=== PATIENT | male | born 1955 | race Caucasian/White ===

== ENCOUNTER 2016-08-14 07:14 | Emergency (ER) | payer OTHER ==
[~2016-08-14] VITALS: Ht 177.8 cm; Wt 97.5 kg
[~2016-08-14 07:14] MED LIST: ENDOCET 325 MG-1 TA1 PO; GUAIFENESIN-COD10 ML PO; MEDROL4 M2 PO; MEDROL4 MG PO; PERCOCET 325 MG1 TA2 PO; PREDNISONE10 MG PO; TESSALON PERLE100 M1 PO; ZITHROMAX250 M2 PO
--- NOTE | 2016-08-14 07:28 | ED MVC/FALL/TRAUMA COMPLAINT ---
History of Present Illness General Chief Complaint: Fall Stated Complaint: LAC TO HEAD,CORDOVA, NAUSEOUS S/P FALL Source: patient, family Exam Limitations: confusion Vital Signs & Intake/Output Vital Signs & Intake/Output Vital Signs Date Time Temp Pulse Resp B/P Pulse O2 O2 Flow FiO2 Ox Delivery Rate 08/14 0756 Room Air Room Air 08/14 0727 98.4 76 20 175/102 99 Room Air Allergies Coded Allergies: NO KNOWN ALLERGIES (04/16/14) Reconcile Medications Naproxen 250 MG TABLET 1 TAB PO BIDP PRN PAIN (Reported) Ondansetron (Zofran Odt) 4 MG TAB.RAPDIS 1 TAB PO Q6 PRN NAUSEA Triage Note: SLIPPED ON ICE AND HIT HEAD WHILE AT WORK, SMALL LACERATION TO BACK OF HEAD, ? LOC, DOESN'T RECALL INCIDENT. Triage Nurses Notes Reviewed? yes Onset: Abrupt Duration: hour(s): (5) Timing: single episode today Severity: moderate Injuries/Fall Location: head Method of Injury: fall Loss of Consciousness: brief (seconds) Associated Symptoms: CONFUSION HPI: 61 year old male who slipeed at work and fell onto the ground and sustained a laceration to the back of the head. His girlfriend states that his coworkers called her and she brought him home. He was confused and didn't remember what happened and she brought him here for evaluation No blurred vision. Patient oriented x 1 only. History of previous concussions. No blood thinner history. Patient reports headache, nausea and confusion. Denies blurred vision. Denies difficulty walking. Past History Travel History Traveled to [place] past 21 day No Medical History Any Pertinent Medical History? see below for history Neurological: NONE EENT: NONE Cardiovascular: NONE Respiratory: asthma Gastrointestinal: NONE Hepatic: NONE Renal: NONE Musculoskeletal: back pain Psychiatric: NONE Endocrine: NONE Surgical History Surgical History: N Psychosocial History What is your primary language Uzbek Tobacco Use: Never used ETOH Use: denies use Family History Hx Contributory? No Review of Systems Review of Systems Constitutional: Denies: chills, fever. Eyes: Denies: blurred vision. Ears, Nose, Throat, Mouth: Reports: no symptoms. Respiratory: Denies: cough, short of breath. Cardiovascular: Denies: chest pain, palpitations. Gastrointestinal/Abdominal: Reports: no symptoms. Genitourinary: Reports: no symptoms. Musculoskeletal: Denies: back pain, joint pain, joint swelling, muscle pain, muscle stiffness, neck pain. Skin: Reports: no symptoms. Neurological/Psychological: Reports: confusion. Denies: headache. All Other Systems: Reviewed and Negative Physical Exam Physical Exam General Appearance: well developed/nourished, alert, awake, mild distress, obese Head: OCCIPITAL ABRASION, DRIED BLOOD Eyes: Bilateral: PERRL, EOMI. Ears, Nose, Throat, Mouth: hearing grossly normal, moist mucous membrane Neck: normal inspection, supple, full range of motion Respiratory: normal breath sounds, chest non-tender, no respiratory distress Cardiovascular: regular rate/rhythm Peripheral Pulses: 2+ radial (R), 2+ radial (L) Gastrointestinal: normal bowel sounds, soft, non-tender Extremities: normal range of motion Neurologic/Psych: no motor/sensory deficits, awake, alert, ORIENTED X 2 Skin: intact, normal color, warm/dry Diagram Head: 1) OCCIPITAL ABRASION Core Measures ACS in differential dx? No Severe Sepsis Present: No Septic Shock Present: No Progress Differential Diagnosis: ICH, CONCUSSION, ABRASION Plan of Care: Orders Procedure Date/time Status CT HEAD WO IV CONTRAST 08/14 739 Active Current Medications Sig/Dominick Start time Last Medication Dose Stop Time Status Admin Tetanus/Diphtheria 0.5 ML ONCE ONE 08/14 744 AC Toxoids Adsorbed 08/14 745 (Decavac) wound irrigated thoroughly. bacitracin applied. (BLADIMIR MENDEZ,FILI) Diagnostic Imaging: Viewed by Me: CT Scan. Discussed w/RAD: CT Scan. Radiology Impression: PATIENT: AILYN VILLAFUERTE PRESENT AGE: 61 PATIENT ACCOUNT NO: [id number] : 59 LOCATION: [facility] [place] ORDERING PHYSICIAN: FILI GARRISON MD SERVICE DATE: 08/14/16 EXAM TYPE: CAT - CT HEAD WO IV CONTRAST EXAMINATION: CT HEAD WITHOUT CONTRAST CLINICAL INFORMATION: Difficulty walking. Slip and fall. Occipital abrasion. COMPARISON: None TECHNIQUE: Contiguous axial imaging was performed from the skull base to vertex without intravenous administration of contrast. DLP: 601 mGy-cm FINDINGS: There is no evidence of acute intracranial hemorrhage or territorial infarction. No abnormal mass effect or midline shift is seen. Gomez to white matter differentiation is well preserved. No extra-axial fluid collections are identified. The ventricles are normal in size. There is no abnormal attenuation within the brain parenchyma. The osseous structures are normal. There is mild mucosal thickening within the ethmoid and sphenoid air cells. The mastoid air cells and middle ear cavities are clear. Mild degenerative changes of the right temporomandibular joint are noted. There is soft tissue thickening in the scalp at the posterior vertex. IMPRESSION: No acute intracranial pathology. DICTATED BY: GLENN PERSAUD MD DATE/TIME DICTATED:08/14/16830 GLOBAL PRESIDENT: ELICIA DATE/TIME TRANSCRIBED:08/14/16830 CONFIDENTIAL, DO NOT COPY WITHOUT APPROPRIATE AUTHORIZATION. <Electronically signed in Other Vendor System> SIGNED BY: GLENN PERSAUD MD 08/14/16 0837 Departure Departure Time of Disposition: 854 Disposition: HOME OR SELF CARE Condition: Stable Clinical Impression Primary Impression: Concussion Referrals: MARIA MENDEZ,MONI Joseph Additional Instructions: Take Zofran as needed for nausea. Take Motrin or Tylenol as needed for headache. Rest over the next 2-3 days at home. No work. Follow up with a neurologist if her symptoms persist beyond a week. Return to the ER for any changing or worsening symptoms. Departure Forms: Customer Survey General Discharge Information Prescriptions: Current Visit Scripts Ondansetron (Zofran Odt) 1 TAB PO Q6 PRN NAUSEA #20 TAB
[2016-08-14] MEDS ORDERED: NAPROXEN250 M1 PO (07:56)
--- NOTE | 2016-08-14 08:37 | CT SCAN REPORT ---
EXAMINATION: CT HEAD WITHOUT CONTRAST CLINICAL INFORMATION: Difficulty walking. Slip and fall. Occipital abrasion. COMPARISON: None TECHNIQUE: Contiguous axial imaging was performed from the skull base to vertex without intravenous administration of contrast. DLP: 601 mGy-cm FINDINGS: There is no evidence of acute intracranial hemorrhage or territorial infarction. No abnormal mass effect or midline shift is seen. Gomez to white matter differentiation is well preserved. No extra-axial fluid collections are identified. The ventricles are normal in size. There is no abnormal attenuation within the brain parenchyma. The osseous structures are normal. There is mild mucosal thickening within the ethmoid and sphenoid air cells. The mastoid air cells and middle ear cavities are clear. Mild degenerative changes of the right temporomandibular joint are noted. There is soft tissue thickening in the scalp at the posterior vertex. IMPRESSION: No acute intracranial pathology.
[2016-08-14] MEDS ORDERED: ZOFRAN ODT4 M1 PO (08:57)
[2016-08-14 09:11] VITALS: BP 149/89
== END 2016-08-14 09:11 ==
LOC: ERH 07:14
DX: S06.0X9A Concussion with loss of consciousness of unspecified duration, initial encounter (principal); W00.0XXA Fall on same level due to ice and snow, initial encounter
CPT/HCPCS: 90471; 90714

== ENCOUNTER 2016-11-05 07:14 | Emergency (ER) | payer OTHER ==
[~2016-11-05] VITALS: Ht 177.8 cm; Wt 93.4 kg
[~2016-11-05 07:14] MED LIST changes: +NAPROXEN250 M1 PO; +ZOFRAN ODT4 M1 PO
[2016-11-05 07:19] VITALS: BP 135/94
--- NOTE | 2016-11-05 07:28 | ED GENERAL ADULT ---
History of Present Illness General Chief Complaint: Low Back Pain/Injury Stated Complaint: LOW R BACK PAIN Source: patient Exam Limitations: no limitations Vital Signs & Intake/Output Vital Signs & Intake/Output Vital Signs Date Time Temp Pulse Resp B/P B/P Pulse O2 O2 Flow FiO2 Mean Ox Delivery Rate 11/05 0719 97.7 71 18 135/94 97 Room Air Allergies Coded Allergies: NO KNOWN ALLERGIES (04/16/14) Reconcile Medications Naproxen 250 MG TABLET 1 TAB PO BIDP PRN PAIN (Reported) Ondansetron (Zofran Odt) 4 MG TAB.RAPDIS 1 TAB PO Q6 PRN NAUSEA Triage Note: PT TO ED FOR EXACERBATION OF CHRONIC BACK PAIN, STATES HE INJURED IT APPROX 4 YEARS AGO AND "I JUST TWISTED WRONG THE OTHER DAY". NO LOSS OF B/B. Triage Nurses Notes Reviewed? yes Onset: Abrupt Duration: day(s): Timing: recent history HPI: 11/05/16 7:42 AM 61-year-old man presents to the emergency department complaining of low back pain. According to the patient is in his usual state of health until yesterday when after lifting a object he developed right-sided low back pain. The onset of the symptoms was abrupt, the duration was approximately 12 hours ago, the severity was significant as his symptoms required him to come to the emergency department for care. He says that he has a history of intermittent low back pain. He denies lower extremity weakness. He does say that he has some numbness occasionally to the dorsal aspect of his right foot. Past History Travel History Traveled to [place] past 21 day No Medical History Any Pertinent Medical History? see below for history Neurological: NONE EENT: NONE Cardiovascular: NONE Respiratory: asthma Gastrointestinal: NONE Hepatic: NONE Renal: NONE Musculoskeletal: CHRONIC back pain Psychiatric: NONE Endocrine: NONE Blood Disorders: NONE Cancer(s): NONE Tetanus Vaccine: 08/14/16 Surgical History Surgical History: N Psychosocial History What is your primary language Moroccan Tobacco Use: Current Daily Use Daily Tobacco Use Amount/Type: =< 4 Cigarettes daily ETOH Use: occasional use Illicit Drug Use: denies illicit drug use Family History Hx Contributory? No Review of Systems Review of Systems Constitutional: Denies: fever. EENTM: Reports: no symptoms. Respiratory: Reports: no symptoms. Cardiovascular: Reports: no symptoms. GI: Reports: no symptoms. Genitourinary: Reports: no symptoms. Musculoskeletal: Reports: back pain. Skin: Denies: rash. Neurological/Psychological: Denies: weakness. Hematologic/Endocrine: Denies: bruising, bleeding. Physical Exam Physical Exam General Appearance: well developed/nourished, alert, awake, anxious, mild distress Head: atraumatic, normal appearance Eyes: Bilateral: normal appearance, PERRL, EOMI. Ears, Nose, Throat: normal pharynx, normal ENT inspection Neck: normal inspection, supple, full range of motion Respiratory: normal breath sounds, chest non-tender, no respiratory distress Cardiovascular: regular rate/rhythm Back: decreased range of motion, muscle spasm (RIGHT SIDED) Extremities: normal inspection, normal range of motion, no edema Neurologic/Psych: no motor/sensory deficits, awake, alert, oriented x 3 Skin: intact, normal color, warm/dry Comments: He has right-sided lower lumbar pain; no actual tenderness but he does have some tightness to the right-sided paravertebral muscles, straight leg raising test is negative. He has no lower extremity weakness. Core Measures ACS in differential dx? No CVA/TIA Diagnosis: No Severe Sepsis Present: No Septic Shock Present: No Progress Differential Diagnoses I considered the following diagnoses in my evaluation of the patient: [Strain, disc herniation, transverse myelitis, epidural abscess, Lyme disease, sciatica] Plan of Care: The patient was treated with IM and by mouth Flexeril. He was told to not lift any heavy objects for the next week. Initial ED EKG: none Departure Departure Disposition: STILL A PATIENT Condition: Stable Clinical Impression Primary Impression: Acute exacerbation of chronic low back pain Referrals: PATIENT HAS NO PRIMARY CARE DR (PCP/Family) Departure Forms: Customer Survey General Discharge Information Critical Care Note Critical Care Note Critical Care Time: non-applicable
[2016-11-05] MEDS ORDERED: MOBIC15 M1 PO (07:56)
[2016-11-05] MEDS ORDERED: PERCOCET 5-3251 EACH PO (07:56)
[2016-11-05] MEDS ORDERED: CYCLOBENZAPRINE10 M1 PO (07:56)
== END 2016-11-05 08:00 ==
LOC: ERH 07:14
DX: M54.5 Low back pain (principal)
CPT/HCPCS: 96372; J1885

== ENCOUNTER 2016-12-19 10:18 | Emergency (ER) | payer OTHER ==
[~2016-12-19 10:18] MED LIST changes: +CYCLOBENZAPRINE10 M1 PO; +MOBIC15 M1 PO; +PERCOCET 5-3251 EACH PO
[2016-12-19 10:30] VITALS: BP 115/78
[2016-12-19] MEDS ORDERED: LIDODERM1 EACH TOP (11:55)
[2016-12-19] MEDS ORDERED: PERCOCET 5-3251 EACH PO (11:55)
--- NOTE | 2016-12-19 11:56 | ED GENERAL ADULT ---
History of Present Illness General Chief Complaint: Lower Extremity Injury Stated Complaint: LFT KNEE INJURY AT WORK Source: patient Exam Limitations: no limitations Vital Signs & Intake/Output Vital Signs & Intake/Output Vital Signs Date Time Temp Pulse Resp B/P B/P Pulse O2 O2 Flow FiO2 Mean Ox Delivery Rate 12/19 1123 99 Room Air 12/19 1030 97.3 78 16 115/78 94 Room Air Allergies Coded Allergies: NO KNOWN ALLERGIES (04/16/14) Reconcile Medications Cyclobenzaprine HCl 10 MG TABLET 1 TAB PO BID PRN PAIN Lidocaine (Lidoderm) 5 % ADH..PATCH 1 PAT TOP DAILY PRN knee pain may wear up to 12 hours Meloxicam (Mobic) 15 MG TABLET 1 TAB PO DAILY PRN PAIN Naproxen 250 MG TABLET 1 TAB PO BIDP PRN PAIN (Reported) Ondansetron (Zofran Odt) 4 MG TAB.RAPDIS 1 TAB PO Q6 PRN NAUSEA Oxycodone HCl/Acetaminophen (Percocet 5-325 MG Tablet) 5 MG-325 MG TABLET 1 TAB PO BID PRN PAIN TAKE ONLY IF NEEDED, IF PAIN NOT RESPONDIONG TO OTHER MEDICATIONS DO NOT TAKE AT WORK Oxycodone HCl/Acetaminophen (Percocet 5-325 MG Tablet) 5 MG-325 MG TABLET 1 TAB PO EVERY 6HRS- NEEDED PRN knee pain Triage Note: PT STATES HE WAS AT WORK GETTING OUT OF A MACHINE AND HURT HIS LEFT KNEE YESTERDAY. HAS BEEN USING TYLENOL AND NAPROXEN WITH MINIMAL RELIEF. STATES KNEE AND CALF IS SWOLLEN. NOT VISUALIZED IN TRIAGE. Triage Nurses Notes Reviewed? yes HPI: 61-year-old male with a history of chronic back pain presenting with left knee pain status post work injury yesterday. Patient was getting out of a machine and states that he twisted his knee as he went to get out. Reports that he has been intermittently swollen. Has tried Tylenol without relief. Denies numbness or paresthesias. Past History Travel History Traveled to [place] past 21 day No Medical History Any Pertinent Medical History? see below for history Neurological: NONE EENT: NONE Cardiovascular: NONE Respiratory: asthma Gastrointestinal: NONE Hepatic: NONE Renal: NONE Musculoskeletal: CHRONIC back pain Psychiatric: NONE Endocrine: NONE Blood Disorders: NONE Cancer(s): NONE Tetanus Vaccine: 08/14/16 Surgical History Surgical History: N Psychosocial History What is your primary language Slovak Tobacco Use: Never used Family History Hx Contributory? No Review of Systems Review of Systems Constitutional: Reports: no symptoms. Respiratory: Reports: no symptoms. Cardiovascular: Reports: no symptoms. GI: Reports: no symptoms. Musculoskeletal: Reports: joint pain (left knee). Denies: back pain, neck pain. Skin: Reports: no symptoms. Neurological/Psychological: Reports: no symptoms. Physical Exam Physical Exam General Appearance: well developed/nourished, no apparent distress, alert, awake , comfortable Head: atraumatic Respiratory: normal breath sounds, lungs clear Cardiovascular: regular rate/rhythm Extremities: normal inspection, normal range of motion, no edema, on exam of the left knee there is no edema, no erythema, no abrasion/laceration. There is no point tenderness to palpation. Sensation is intact. Motor strength is 5 out of 5. Unrestricted range of motion with both flexion and extension of the knee. no knee instability with anterior/posterior drawer and valgus/varus stress test. Patient is able to ambulate and bear weight with a steady gait. Neurologic/Psych: no motor/sensory deficits, awake, alert, oriented x 3, normal gait, normal mood/affect Skin: intact, normal color, warm/dry Core Measures ACS in differential dx? No CVA/TIA Diagnosis: No Severe Sepsis Present: No Septic Shock Present: No Progress Differential Diagnoses I considered the following diagnoses in my evaluation of the patient: [Ligament strain versus knee effusion versus fracture versus dislocation versus contusion] Plan of Care: Exam consistent with likely ligament strain. No indication for x-ray imaging at this time. Patient offered naproxen and Lidoderm patches for pain relief. Patient states that he has also tried naproxen without improvement. Patient is expressing concern that he would like to return to work but that the pain will inhibit him from being able to return to work. Will give her 6 tablets of Percocet to help with pain relief over the next 24-48 hours that the patient will be able to return to work. Instructed to use ibuprofen or naproxen first, and then Percocet for any breakthrough pain. We'll also give Rx for Lidoderm patches. Initial ED EKG: none Departure Departure Disposition: HOME OR SELF CARE Condition: Stable Clinical Impression Primary Impression: Left knee pain Referrals: MEGAN ROMAN MD (PCP/Family) Additional Instructions: Use 600 mg of ibuprofen every 6 hours as needed for pain. Apply 1 Lidoderm patch to the knee once daily as needed for pain. Use 1 tablet of Percocet every 6 hours as needed for breakthrough pain. Apply ice to the area 2-3 times per day. Follow-up with your primary care provider for reevaluation in the next 48 hours. Return to the ED for any worsening symptoms. Departure Forms: Customer Survey Employee Industrial Accident General Discharge Information Prescriptions: Current Visit Scripts Oxycodone HCl/Acetaminophen (Percocet 5-325 MG Tablet) 1 TAB PO EVERY 6HRS- NEEDED PRN knee pain #6 TAB Lidocaine (Lidoderm) 1 PAT TOP DAILY PRN knee pain #15 PAT may wear up to 12 hours Critical Care Note Critical Care Note Critical Care Time: non-applicable
== END 2016-12-19 12:03 ==
LOC: ERH 10:18
DX: M25.562 Pain in left knee (principal); X50.9XXA Other and unspecified overexertion or strenuous movements or postures, initial encounter; Y93.89 Activity, other specified; Y92.9 Unspecified place or not applicable